=== PATIENT | male | born 1945 | race Caucasian/White ===

== ENCOUNTER 2022-01-11 12:32 | Inpatient (IN) | payer BC, OTHER ==
[2022-01-11] MEDS ORDERED: LOPERAMIDE HCL 2 MG CAPSULE PO PRN (13:10)
[2022-01-11] MEDS ORDERED: BISMUTH SUBSALICYLATE 262 MG/15 ML BTL PO PRN (13:10)
[2022-01-11] MEDS ORDERED: ONDANSETRON *ODT* 4 MG TABLET SL PRN (13:10)
[2022-01-11] MEDS ORDERED: cloNIDine HCL 0.1 MG TABLET PO ONE (13:10)
[2022-01-11] MEDS ORDERED: MAGNESIUM HYDROX 2400MG/30ML ORAL SUSPENSION 30 ML CUP PO PRN (13:10)
[2022-01-11] MEDS ORDERED: ACETAMINOPHEN 325 MG TABLET (FP) PO PRN ×2 (13:10)
[2022-01-11] MEDS ORDERED: MAGNESIUM CITRATE 300 ML BOTTLE PO PRN (13:10)
[2022-01-11] MEDS ORDERED: BUPRENORPHINE HCL 150 MCG, BUPRENORPHINE HCL 75 MCG BC ONE (13:10)
[2022-01-11] MEDS ORDERED: MENTHOL/PHENOL 1 EACH UD MM PRN (13:10)
[2022-01-11] MEDS ORDERED: MAG HYDROX/AL HYDROX/SIMETH 30 ML UNIT-DOSE CUP PO PRN (13:10)
[2022-01-11] MEDS ORDERED: NICOTINE 10 MG CARTRIDGE (INHALER) IH PRN (13:10)
[2022-01-11 13:49] VITALS: BMI 28.5
[2022-01-11] MEDS ORDERED: BUPRENORPHINE HCL 150 MCG FILM BC ONE (14:12)
[2022-01-11] MEDS ORDERED: BUPRENORPHINE HCL 75 MCG FILM BC ONE (14:12)
[2022-01-11] MEDS: hydrOXYzine PAMOATE 25 MG CAPSULE (FP) PO SCH ×3 (14:17→22:28)
[2022-01-11] MEDS: PRENATAL VITAMINS W/ FOLIC ACID TABLET (FP) PO SCH (15:17)
[2022-01-11] MEDS: diazePAM 5 MG TABLET PO PRN ×2 (17:14→22:28)
[2022-01-11] MEDS: IBUPROFEN 400 MG TABLET (FP) PO PRN (17:17)
[2022-01-11 17:29] LABS: HEMATOCRIT 39.8 % (35.4-49); HEMOGLOBIN 13.4 GM/dL (11.7-16.9); MCH 32.4 pg (25.7-33.7); MCHC 33.7 g/dl (32.0-35.9); MEAN CELL VOLUME 96.2 fl (80-96); MEAN PLT VOLUME 9.2 fl (7.5-11.1); PLATELET COUNT 286 10^3/uL (134-434); RBC 4.13 M/mm3 (4.00-5.60); RDW 14.1 % (11.9-15.9)
[2022-01-11 17:31] LABS: CALCIUM 9.6 mg/dL (8.5-10.1)
[2022-01-11 17:32] LABS: ALBUMIN 3.8 g/dl (3.4-5.0); BLOOD UREA NITROGEN 19.6 mg/dL (7-18)
[2022-01-11 17:35] LABS: CREATININE 0.9 mg/dL (0.55-1.3)
[2022-01-11 17:36] LABS: BILIRUBIN,TOTAL 0.5 mg/dL (0.2-1); TOT PROT 7.8 g/dl (6.4-8.2)
[2022-01-11] MEDS: cloNIDine HCL 0.1 MG TABLET PO PRN (19:32)
[2022-01-11] MEDS: METHOCARBAMOL 500 MG TABLET PO PRN (19:32)
[2022-01-11] MEDS: THIAMINE HCL 100 MG TABLET (FP) PO SCH (22:27)
[2022-01-11] MEDS: MELATONIN 5 MG TABLETS PO SCH (22:29)
[2022-01-12] MEDS ORDERED: BUPRENORPHINE HCL 75 MCG FILM BC ONE ×2 (04:04→17:30)
[2022-01-12] MEDS ORDERED: BUPRENORPHINE HCL 150 MCG FILM BC ONE ×2 (04:04→17:30)
[2022-01-12] MEDS: hydrOXYzine PAMOATE 25 MG CAPSULE (FP) PO SCH ×5 (05:33→22:13)
[2022-01-12] MEDS: BUPRENORPHINE HCL 150 MCG, BUPRENORPHINE HCL 75 MCG BC SCH ×2 (05:33→18:10)
[2022-01-12] MEDS: METHOCARBAMOL 500 MG TABLET PO PRN ×2 (05:35→14:42)
[2022-01-12] MEDS: ASPIRIN 81 MG CHEWABLE TABLETS PO SCH (09:24)
[2022-01-12] MEDS: LISINOPRIL 20 MG TABLET PO SCH (09:24)
[2022-01-12] MEDS: PRENATAL VITAMINS W/ FOLIC ACID TABLET (FP) PO SCH (09:24)
[2022-01-12] MEDS: IBUPROFEN 400 MG TABLET (FP) PO PRN ×2 (09:26→18:09)
[2022-01-12] MEDS: diazePAM 5 MG TABLET PO PRN (09:27)
[2022-01-12 13:46] LABS: URINE APPEARANCE CLEAR; URINE BILIRUBIN NEGATIVE (NEGATIVE); URINE COLOR YELLOW; URINE GLUCOSE (UA) NEGATIVE (NEGATIVE); URINE KETONE NEGATIVE (NEGATIVE); URINE LEUK ESTERASE NEGATIVE (NEGATIVE); URINE NITRITE NEGATIVE (NEGATIVE); URINE PROTEIN NEGATIVE (NEGATIVE); URINE UROBILINOGEN 0.2 mg/dL (0.2-1.0)
[2022-01-12] MEDS ORDERED: BACLOFEN 10 MG TABLET (FP) PO ONE (14:37)
[2022-01-12] MEDS ORDERED: IBUPROFEN 600 MG TABLET (FP) PO ONE (14:40)
[2022-01-12] MEDS: amLODIPine BESYLATE 5 MG TABLET (FP) PO SCH (15:46)
[2022-01-12] MEDS: MELATONIN 5 MG TABLETS PO SCH (22:13)
[2022-01-12] MEDS: THIAMINE HCL 100 MG TABLET (FP) PO SCH (22:13)
[2022-01-13] MEDS: METHOCARBAMOL 500 MG TABLET PO PRN (05:41)
[2022-01-13] MEDS: hydrOXYzine PAMOATE 25 MG CAPSULE (FP) PO SCH ×5 (05:43→22:10)
[2022-01-13] MEDS ORDERED: BUPRENORPHINE HCL 450 MCG FILM BC SCH (06:00)
[2022-01-13] MEDS ORDERED: cloNIDine HCL 0.1 MG TABLET PO ONE (10:00)
[2022-01-13] MEDS ORDERED: DIPHENOXYLATE 2.5/ATROPINE.025 1 COMBO TABLET PO ONE (10:00)
[2022-01-13] MEDS ORDERED: LORATADINE 10 MG TABLET PO ONE (10:00)
[2022-01-13] MEDS ORDERED: BACLOFEN 10 MG TABLET (FP) PO ONE (10:00)
[2022-01-13] MEDS: PRENATAL VITAMINS W/ FOLIC ACID TABLET (FP) PO SCH (10:33)
[2022-01-13] MEDS: ASPIRIN 81 MG CHEWABLE TABLETS PO SCH (10:33)
[2022-01-13] MEDS: LISINOPRIL 20 MG TABLET PO SCH (10:33)
[2022-01-13] MEDS: amLODIPine BESYLATE 5 MG TABLET (FP) PO SCH (10:34)
[2022-01-13] MEDS: diazePAM 5 MG TABLET PO PRN (10:35)
[2022-01-13] MEDS: SODIUM CHLORIDE NASAL SPRAY 44 ML BOTTLE NS SCH ×2 (11:12→22:11)
[2022-01-13] MEDS: cloNIDine HCL 0.1 MG TABLET PO PRN (12:25)
[2022-01-13] MEDS: IBUPROFEN 400 MG TABLET (FP) PO PRN (12:28)
[2022-01-13 14:08] LABS: SARS-CoV-2 NAA Not Detected (Not Detected)
[2022-01-13] MEDS: BACLOFEN 10 MG TABLET (FP) PO SCH ×2 (14:14→22:10)
[2022-01-13] MEDS ORDERED: methaDONE HCL 10 MG TABLET (FOR DETOX USE ONLY) PO ONE (17:54)
[2022-01-13] MEDS: MELATONIN 5 MG TABLETS PO SCH (22:10)
[2022-01-13] MEDS: THIAMINE HCL 100 MG TABLET (FP) PO SCH (22:11)
[2022-01-14] MEDS: hydrOXYzine PAMOATE 25 MG CAPSULE (FP) PO SCH ×5 (05:29→22:18)
[2022-01-14] MEDS: BACLOFEN 10 MG TABLET (FP) PO SCH ×3 (05:29→22:19)
[2022-01-14] MEDS: cloNIDine HCL 0.1 MG TABLET PO PRN ×2 (05:30→22:22)
[2022-01-14] MEDS ORDERED: BUPRENORPHINE/NALOXONE 4 MG/1 MG FILM PACKET SL SCH (06:00)
[2022-01-14] MEDS ORDERED: methaDONE HCL 10 MG TABLET (FOR DETOX USE ONLY) ONE (09:12)
[2022-01-14] MEDS: LISINOPRIL 20 MG TABLET PO SCH (10:44)
[2022-01-14] MEDS: amLODIPine BESYLATE 10 MG TABLET (FP) PO SCH (10:44)
[2022-01-14] MEDS: SODIUM CHLORIDE NASAL SPRAY 44 ML BOTTLE NS SCH ×2 (10:44→22:23)
[2022-01-14] MEDS: PRENATAL VITAMINS W/ FOLIC ACID TABLET (FP) PO SCH (10:44)
[2022-01-14] MEDS: ASPIRIN 81 MG CHEWABLE TABLETS PO SCH (10:44)
[2022-01-14] MEDS: THIAMINE HCL 100 MG TABLET (FP) PO SCH (22:18)
[2022-01-14] MEDS: MELATONIN 5 MG TABLETS PO SCH (22:19)
[2022-01-15] MEDS: BACLOFEN 10 MG TABLET (FP) PO SCH (05:36)
[2022-01-15] MEDS: hydrOXYzine PAMOATE 25 MG CAPSULE (FP) PO SCH ×2 (05:36→09:33)
[2022-01-15] MEDS ORDERED: BUPRENORPHINE/NALOXONE 8 MG/2 MG FILM PACKET SL ONE (06:00)
[2022-01-15] MEDS ORDERED: diazePAM 5 MG TABLET PO PRN (09:13)
[2022-01-15] MEDS ORDERED: cloNIDine HCL 0.1 MG TABLET PO ONE (09:13)
[2022-01-15] MEDS: SODIUM CHLORIDE NASAL SPRAY 44 ML BOTTLE NS SCH (09:32)
[2022-01-15] MEDS: LISINOPRIL 20 MG TABLET PO SCH (09:33)
[2022-01-15] MEDS: ASPIRIN 81 MG CHEWABLE TABLETS PO SCH (09:33)
[2022-01-15] MEDS: amLODIPine BESYLATE 10 MG TABLET (FP) PO SCH (09:33)
[2022-01-15] MEDS: PRENATAL VITAMINS W/ FOLIC ACID TABLET (FP) PO SCH (09:34)
[2022-01-15] MEDS ORDERED: methaDONE HCL 10 MG TABLET (FOR DETOX USE ONLY) PO ONE (10:00)
[2022-01-15 13:21] VITALS: BP 149/106; PULSE 80; TEMP 98.2
[2022-01-15 14:08] LABS: SARS-CoV-2 NAA Not Detected (Not Detected)
[2022-01-17] MEDS ORDERED: methaDONE HCL 10 MG TABLET (FOR DETOX USE ONLY) PO ONE (10:00)
== END 2022-01-15 13:11 | disposition left against medical advice (07) | DRG 894 ==
LOC: YASAS 12:32 → Y6N 14:33
PROVIDERS: ADMIT Allergy & Immunology; ATTEND Allergy & Immunology
PROC: HZ2ZZZZ Detoxification Services for Substance Abuse Treatment (ICD-10-PCS; principal; 2022-01-11)
DX: F11.23 Opioid dependence with withdrawal (principal); F13.20 Sedative, hypnotic or anxiolytic dependence, uncomplicated; F12.20 Cannabis dependence, uncomplicated; F17.210 Nicotine dependence, cigarettes, uncomplicated; I10 Essential (primary) hypertension; Z86.11 Personal history of tuberculosis
CPT/HCPCS: 36415; 71046-TC-FY; 80053; 81003; 85027; 86780; 93005; 93010; C9803; J0475; J0735; Q0162; U0003; U0005